=== PATIENT | female | born 1995 | race Caucasian/White ===

== ENCOUNTER 2017-03-09 08:36 | Emergency (ER) | payer MEDICAID ==
[~2017-03-09] VITALS: Ht 160 cm; Wt 57.1 kg
[2017-03-09 08:38] VITALS: BP 126/81
== END 2017-03-09 09:09 | disposition home or self-care (01) ==
LOC: ED 09:00
DX: K02.9 Dental caries, unspecified (principal); K08.89 Other specified disorders of teeth and supporting structures; F17.200 Nicotine dependence, unspecified, uncomplicated
CPT/HCPCS: 99283

== ENCOUNTER 2019-06-18 17:29 | Emergency (ER) | payer MEDICAID ==
[~2019-06-18] VITALS: Ht 160 cm; Wt 60.1 kg
--- NOTE | 2019-06-18 18:06 | NUR ---
UA COLLECTED. LAB IN ROOM.
[2019-06-18 18:18] LABS: BASOPHILS # (AUTO) 0.01 x10^3/uL (0-0.1); BASOPHILS % (AUTO) 0 % (0-1); EOSINOPHILS # (AUTO) 0.04 x10^3/uL (0-0.4); EOSINOPHILS % (AUTO) 0 % (1-7); LYMPHOCYTES # (AUTO) 1.67 x10^3/uL (1-3.4); LYMPHOCYTES % (AUTO) 14 % (22-44); MD NO; MEAN CORPUSCULAR HEMOGLOBIN 31.3 pg (27.0-34.8); MEAN CORPUSCULAR HGB CONC 33.6 g/dL (32.4-35.8); MEAN CORPUSCULAR VOLUME 93.3 fL (80-100); MEAN PLATELET VOLUME 7.9 fL (7.4-10.4); MONOCYTES # (AUTO) 0.76 x10^3/uL (0.2-0.8); MONOCYTES % (AUTO) 6 % (2-9); NEUTROPHILS # (AUTO) 9.89 x10^3/uL (1.8-6.8); NEUTROPHILS % (AUTO) 80 % (42-75); PLATELET COUNT 284 x10^3/uL (130-400); RED BLOOD COUNT 3.83 x10^6/uL (3.82-5.3); RED CELL DISTRIBUTION WIDTH 13.1 % (9.6-15.2)
[2019-06-18 18:26] LABS: ALANINE AMINOTRANSFERASE 16 U/L (12-78); ALBUMIN 2.7 g/dL (3.4-5.0); ANION GAP 8 mmol/L (5-15); CALCIUM 8.1 mg/dL (8.5-10.1); CHLORIDE 108 mmol/L (98-107); CREATININE 0.51 mg/dL (0.55-1.02)
[2019-06-18 18:44] LABS: ALKALINE PHOSPHATASE 144 U/L (45-117); BILIRUBIN,TOTAL 0.3 mg/dL (0.2-1.0); TOTAL PROTEIN 6.4 g/dL (6.4-8.2)
--- NOTE | 2019-06-18 19:07 | NUR ---
REPORT FROM RD RIOJAS
[2019-06-18 19:08] LABS: CULTURE INDICATED? YES; MICROSCOPIC INDICATED
[2019-06-18 19:14] VITALS: BP 114/60
[2019-06-18] MEDS ORDERED: SODIUM CHLORIDE FLUSH 10ML SYR IVF ONE (19:30)
[2019-06-18] MEDS ORDERED: CEFTRIAXONE PMX 1GM/50ML 50 ML IV ONE (19:30)
--- NOTE | 2019-06-18 19:48 | NUR ---
Marlo matt in ED - 06/18/19 at 1948 by [facility] PER ER PA, NO BLOOD CULTURES PRIOR TO ABX
--- NOTE | 2019-06-18 19:48 | NUR ---
PER ER PA, NO BLOOD CULTURES PRIOR TO ABX
[2019-06-18] MEDS ORDERED: CEFTRIAXONE PMX 1GM/50ML 50 ML ONE (19:52)
[2019-06-18 20:03] VITALS: BP 91/42
[2019-06-18 20:51] VITALS: BP 113/65
--- NOTE | 2019-06-18 20:58 | NUR ---
Patient/Caregiver given discharge instructions and they have confirmed that they understand the instructions. Patient ambulatory with steady gait.
== END 2019-06-18 21:00 | disposition home or self-care (01) ==
LOC: ED 20:45
DX: O23.12 Infections of bladder in pregnancy, second trimester (principal); O20.0 Threatened abortion; Z3A.17 17 weeks gestation of pregnancy; Z90.49 Acquired absence of other specified parts of digestive tract; Z88.0 Allergy status to penicillin
CPT/HCPCS: 36415; 76815; 80053; 81001; 84702; 85025; 86850; 86900; 87077; 87086; 96365; 96372; 99284; J0696; J2790; 87186

== ENCOUNTER 2019-06-19 20:36 | Emergency (ER) | payer MEDICAID ==
[~2019-06-19] VITALS: Ht 162.6 cm; Wt 60.9 kg
--- NOTE | 2019-06-19 21:14 | NUR ---
17 WEEKS . PT WAS SEEN HERE YESTERDAY FOR URINARY SYMPTOMS. RECIEVED IV ABX AND D/C. PT STATES THAT SHE WAS TOLD BY ER TO COME BACK TODAY TO RECIEVE MORE IV ABX. PT STATES THAT HER SYMTOMS HAVE IMPROVED BUT SHE IS STILL HAVING PAIN WITH URINATION. NO ACUTE DISTRESS.
[2019-06-19] MEDS ORDERED: CEFTRIAXONE PMX 1GM/50ML 50 ML ONE (21:17)
[2019-06-19] MEDS ORDERED: CEFTRIAXONE PMX 1GM/50ML 50 ML IV ONE (21:30)
[2019-06-19 22:29] VITALS: BP 100/67
== END 2019-06-19 22:31 | disposition home or self-care (01) ==
LOC: ED 21:55
DX: O23.12 Infections of bladder in pregnancy, second trimester (principal); Z3A.17 17 weeks gestation of pregnancy; F17.200 Nicotine dependence, unspecified, uncomplicated; Z90.49 Acquired absence of other specified parts of digestive tract; Z85.038 Personal history of other malignant neoplasm of large intestine
CPT/HCPCS: 96365; 99283; J0696